=== PATIENT | female | born 1940 | race Asian ===

== ENCOUNTER 2017-07-24 23:56 | Inpatient (IN) | payer MEDICARE ==
[~2017-07-24] VITALS: Ht 165.1 cm; Wt 98.7 kg
[2017-07-25] MEDS ORDERED: hydrALAzine 20 MG/ML, 1ML IV ONE (00:30)
[2017-07-25] MEDS ORDERED: hydrALAzine 20 MG/ML, 1ML ONE (00:43)
[2017-07-25 00:45] LABS: BASOPHILS # (AUTO) 0.04 x10^3/uL (0-0.1); BASOPHILS % (AUTO) 1 % (0-1); EOSINOPHILS # (AUTO) 0.14 x10^3/uL (0-0.4); EOSINOPHILS % (AUTO) 3 % (1-7); LYMPHOCYTES % (AUTO) 29 % (22-44); MD NO; MEAN CORPUSCULAR HEMOGLOBIN 33.2 pg (27.0-34.8); MEAN CORPUSCULAR HGB CONC 34.1 g/dL (32.4-35.8); MEAN CORPUSCULAR VOLUME 97.4 fL (80-100); MEAN PLATELET VOLUME 7.7 fL (7.4-10.4); MONOCYTES # (AUTO) 0.49 x10^3/uL (0.2-0.8); MONOCYTES % (AUTO) 8 % (2-9); NEUTROPHILS # (AUTO) 3.49 x10^3/uL (1.8-6.8); NEUTROPHILS % (AUTO) 60 % (42-75); PLATELET COUNT 232 x10^3/uL (130-400); RED BLOOD COUNT 4.36 x10^6/uL (3.82-5.3); RED CELL DISTRIBUTION WIDTH 13.3 % (9.6-15.2)
[2017-07-25 00:57] LABS: ALBUMIN 3.6 g/dL (3.4-5.0); ANION GAP 11 mmol/L (5-15); CALCIUM 8.4 mg/dL (8.5-10.1); CHLORIDE 107 mmol/L (98-107)
[2017-07-25 01:03] LABS: ALANINE AMINOTRANSFERASE 27 U/L (12-78); ALKALINE PHOSPHATASE 65 U/L (45-117); BILIRUBIN,TOTAL 0.4 mg/dL (0.2-1.0); CREATININE 0.98 mg/dL (0.55-1.02); TROPONIN I < 0.015 ng/mL (0.000-0.045)
[2017-07-25] MEDS ORDERED: SODIUM CHLORIDE 0.9% 1,000 ML IV SCH (04:10)
[2017-07-25] MEDS ORDERED: ONDANSETRON 2MG/ML, 2ML IVPush PRN ×2 (04:30→08:00)
[2017-07-25] MEDS ORDERED: hydrALAzine 20 MG/ML, 1ML IVPush PRN (04:30)
[2017-07-25] MEDS ORDERED: ACETAMINOPHEN 325 MG TABLET PO PRN (04:30)
[2017-07-25] MEDS ORDERED: GADOBUTROL 10 MMOL/10 ML PFS ONE (04:44)
[2017-07-25 05:35] VITALS: BP 148/81
[2017-07-25] MEDS: DEXAMETHASONE 4 MG TABLET PO SCH (08:00)
[2017-07-25 08:03] VITALS: BP 146/77
[2017-07-25] MEDS ORDERED: DEXAMETHASONE 1 MG TABLET ONE (08:18)
[2017-07-25] MEDS: HYDROCHLOROTHIAZIDE 12.5 MG CAPSULE PO SCH (08:24)
[2017-07-25] MEDS: METOPROLOL TARTRATE 25 MG TABLET PO SCH ×2 (08:25→17:24)
[2017-07-25 15:14] VITALS: BP 117/65
[2017-07-25 19:16] VITALS: BP 161/78
[2017-07-26 02:43] VITALS: BP 111/64
[2017-07-26 05:31] LABS: BASOPHILS # (AUTO) 0.02 x10^3/uL (0-0.1); BASOPHILS % (AUTO) 0 % (0-1); EOSINOPHILS % (AUTO) 0 % (1-7); LYMPHOCYTES # (AUTO) 1.23 x10^3/uL (1-3.4); LYMPHOCYTES % (AUTO) 16 % (22-44); MD NO; MEAN CORPUSCULAR HEMOGLOBIN 33.2 pg (27.0-34.8); MEAN CORPUSCULAR HGB CONC 34.1 g/dL (32.4-35.8); MEAN CORPUSCULAR VOLUME 97.4 fL (80-100); MEAN PLATELET VOLUME 7.9 fL (7.4-10.4); MONOCYTES # (AUTO) 0.65 x10^3/uL (0.2-0.8); MONOCYTES % (AUTO) 8 % (2-9); NEUTROPHILS # (AUTO) 5.82 x10^3/uL (1.8-6.8); NEUTROPHILS % (AUTO) 75 % (42-75); PLATELET COUNT 223 x10^3/uL (130-400); RED BLOOD COUNT 4.31 x10^6/uL (3.82-5.3); RED CELL DISTRIBUTION WIDTH 13.4 % (9.6-15.2)
[2017-07-26] MEDS: METOPROLOL TARTRATE 25 MG TABLET PO SCH (05:33)
[2017-07-26 05:36] LABS: ANION GAP 12 mmol/L (5-15); CALCIUM 8.6 mg/dL (8.5-10.1); CHLORIDE 106 mmol/L (98-107)
[2017-07-26 05:39] LABS: CREATININE 1.06 mg/dL (0.55-1.02)
[2017-07-26] MEDS ORDERED: DEXA4TAB PO (06:47)
[2017-07-26] MEDS ORDERED: FAMO20TA37 PO (06:47)
[2017-07-26] MEDS ORDERED: HYDR12.53 PO (06:47)
[2017-07-26] MEDS ORDERED: METO25TA35 PO (06:47)
[2017-07-26 07:55] VITALS: BP 148/79
[2017-07-26] MEDS: HYDROCHLOROTHIAZIDE 12.5 MG CAPSULE PO SCH (07:57)
[2017-07-26] MEDS: DEXAMETHASONE 4 MG TABLET PO SCH (07:57)
[2017-07-26] MEDS ORDERED: FLU VACC QS2017-18 (36MOS+) UP/PF 0.5 ML IM-VACC ONE (10:30)
[2017-07-26] MEDS ORDERED: PNEUMOCOCCAL 23 VACCINE IM-VACC ONE (10:30)
== END 2017-07-26 11:11 | disposition home or self-care (01) | DRG 149 ==
LOC: ED 07-25 00:45 → EDIP 07-25 03:16 → 4WST 07-25 05:27 → DCLOUNGE 07-26 10:40
PROVIDERS: ADMIT Hospitalist; ATTEND Hospitalist
DX: R42 Dizziness and giddiness (principal); D18.02 Hemangioma of intracranial structures; I16.0 Hypertensive urgency; E66.9 Obesity, unspecified; I10 Essential (primary) hypertension; Z68.36 Body mass index [BMI] 36.0-36.9, adult; R27.0 Ataxia, unspecified
CPT/HCPCS: 36415; 70450; 70544; 70553; 71045; 80048; 80053; 83735; 83880; 84100; 84484; 85025; 90686; 90732; 93005; 96374; A9585; J0360

== ENCOUNTER → 2017-09-01 | Outpatient (CLI) | payer MEDICARE ==
[~2017-09-01] MED LIST: AMLO5TAB2 PO; DEXA4TAB PO; FAMO20TA37 PO; HYDR-3343 PO; HYDR12.53 PO; METO25TA35 PO; SIMV20TA PO
== END | disposition home or self-care (01) ==
LOC: CFH 12:58
PROVIDERS: ATTEND Family Medicine
DX: Z12.31 Encounter for screening mammogram for malignant neoplasm of breast (principal)
CPT/HCPCS: 77067

== ENCOUNTER 2018-07-27 21:59 | Emergency (ER) | payer MEDICARE ==
[~2018-07-27] VITALS: Ht 165.1 cm; Wt 111.9 kg
[~2018-07-27 21:59] MED LIST changes: +AMLO-150 PO; -AMLO5TAB2 PO; +HYDR12.517 PO; -HYDR12.53 PO
--- NOTE | 2018-07-27 22:26 | NUR ---
Dr. Love at bedside to evaluate pt. Pt reports that for the past week she hasn't been feeling well and today started c/o pain to her hands and feet. Pt is not taking any HTN medications.
[2018-07-27 22:57] LABS: BASOPHILS # (AUTO) 0.01 x10^3/uL (0-0.1); BASOPHILS % (AUTO) 0 % (0-1); EOSINOPHILS # (AUTO) 0.42 x10^3/uL (0-0.4); EOSINOPHILS % (AUTO) 7 % (1-7); LYMPHOCYTES # (AUTO) 1.05 x10^3/uL (1-3.4); LYMPHOCYTES % (AUTO) 18 % (22-44); MD NO; MEAN CORPUSCULAR HEMOGLOBIN 33.6 pg (27.0-34.8); MEAN CORPUSCULAR HGB CONC 34.2 g/dL (32.4-35.8); MEAN CORPUSCULAR VOLUME 98.1 fL (80-100); MEAN PLATELET VOLUME 7.8 fL (7.4-10.4); MONOCYTES # (AUTO) 0.57 x10^3/uL (0.2-0.8); MONOCYTES % (AUTO) 10 % (2-9); NEUTROPHILS # (AUTO) 3.89 x10^3/uL (1.8-6.8); NEUTROPHILS % (AUTO) 65 % (42-75); PLATELET COUNT 214 x10^3/uL (130-400); RED BLOOD COUNT 4.38 x10^6/uL (3.82-5.3); RED CELL DISTRIBUTION WIDTH 13.2 % (9.6-15.2)
[2018-07-27 23:04] LABS: ALBUMIN 3.5 g/dL (3.4-5.0); ANION GAP 8 mmol/L (5-15); CALCIUM 8.9 mg/dL (8.5-10.1); CHLORIDE 109 mmol/L (98-107); CREATININE 1.14 mg/dL (0.55-1.02)
[2018-07-27 23:08] LABS: TROPONIN I < 0.015 ng/mL (0.000-0.045)
--- NOTE | 2018-07-27 23:20 | NUR ---
Break RN: Pt resting with no s/s of acute distress. Warm blanket given per request. VS improving. Pt updated to POC. Pt to CT via [facility].
[2018-07-28 00:46] VITALS: BP 140/71
--- NOTE | 2018-07-28 00:47 | NUR ---
Patient/Caregiver given discharge instructions and they have confirmed that they understand the instructions. Patient ambulatory with steady gait.
== END 2018-07-28 00:48 | disposition home or self-care (01) ==
LOC: ED 22:49
DX: I10 Essential (primary) hypertension (principal); R51 Headache
CPT/HCPCS: 36415; 70450; 80048; 82040; 84484; 85025; 93005; 99284

== ENCOUNTER 2018-10-31 01:27 | Inpatient (IN) | payer MEDICARE ==
[~2018-10-31] VITALS: Ht 165.1 cm; Wt 127.0 kg
--- NOTE | 2018-10-31 01:45 | NUR ---
ABD PAIN X 3 HOURS DENIES VOMITING DIARRHEA, NO BM SINCE MONDAY. MONITORS APPLIED, SIDERAISL UP X2, FAMILY AT BEDSIDE, CALL LIGHT WITHIN REACH
[2018-10-31] MEDS ORDERED: LOSA50TA14 PO (01:47)
[2018-10-31] MEDS ORDERED: SODIUM CHLORIDE FLUSH 10ML SYR IVF ONE ×2 (02:00→04:00)
--- NOTE | 2018-10-31 02:26 | NUR ---
break rn: 2 iv attempts failed. ekg and labs drawn. another rn to attempt iv placement. family at bedside.
[2018-10-31 02:31] LABS: BASOPHILS % (AUTO) 0 % (0-1); EOSINOPHILS # (AUTO) 0.31 x10^3/uL (0-0.4); EOSINOPHILS % (AUTO) 3 % (1-7); LYMPHOCYTES # (AUTO) 1.33 x10^3/uL (1-3.4); LYMPHOCYTES % (AUTO) 12 % (22-44); MD NO; MEAN CORPUSCULAR HEMOGLOBIN 33.4 pg (27.0-34.8); MEAN CORPUSCULAR HGB CONC 34.1 g/dL (32.4-35.8); MEAN CORPUSCULAR VOLUME 98.1 fL (80-100); MEAN PLATELET VOLUME 7.5 fL (7.4-10.4); MONOCYTES # (AUTO) 0.19 x10^3/uL (0.2-0.8); MONOCYTES % (AUTO) 2 % (2-9); NEUTROPHILS % (AUTO) 84 % (42-75); PLATELET COUNT 261 x10^3/uL (130-400); RED BLOOD COUNT 4.35 x10^6/uL (3.82-5.3); RED CELL DISTRIBUTION WIDTH 13.6 % (9.6-15.2)
--- NOTE | 2018-10-31 02:37 | NUR ---
CT PENDING CREATINE.
[2018-10-31 02:40] LABS: ALANINE AMINOTRANSFERASE 173 U/L (12-78); ALBUMIN 3.3 g/dL (3.4-5.0); ANION GAP 7 mmol/L (5-15); CALCIUM 8.8 mg/dL (8.5-10.1); CHLORIDE 110 mmol/L (98-107); CREATININE 1.22 mg/dL (0.55-1.02)
[2018-10-31 02:45] LABS: ALKALINE PHOSPHATASE 76 U/L (45-117); BILIRUBIN,TOTAL 0.6 mg/dL (0.2-1.0); TOTAL PROTEIN 7.5 g/dL (6.4-8.2); TROPONIN I < 0.015 ng/mL (0.000-0.045)
--- NOTE | 2018-10-31 03:14 | NUR ---
waiting for iv for ct.
--- NOTE | 2018-10-31 03:19 | NUR ---
URINE SAMPLE TAKEN TO LAB. PT TO CT
[2018-10-31] MEDS ORDERED: OMNIPAQUE 350 MG/ML, 100ML BOTTLE ONE (03:24)
[2018-10-31 03:42] LABS: MICROSCOPIC INDICATED
[2018-10-31 03:43] LABS: CULTURE INDICATED? YES
[2018-10-31] MEDS ORDERED: SODIUM CHLORIDE 0.9% 1,000ML IVBOLUS ONE (04:00)
[2018-10-31] MEDS ORDERED: HYDROmorphone 2 MG/ML, 1ML IVPush PRN (04:00)
[2018-10-31] MEDS ORDERED: ONDANSETRON 2MG/ML, 2ML IVPush ONE (04:00)
[2018-10-31] MEDS ORDERED: ONDANSETRON 2MG/ML, 2ML ONE (04:12)
[2018-10-31] MEDS ORDERED: HYDROmorphone 1 MG/ML, 1ML VIAL ONE (04:13)
--- NOTE | 2018-10-31 04:18 | NUR ---
PT MEDICATED PER MAR
[2018-10-31] MEDS ORDERED: SODIUM CHLORIDE 0.9% 1,000 ML IV SCH (04:36)
[2018-10-31] MEDS ORDERED: hydrALAzine 20 MG/ML, 1ML IVPush PRN (05:00)
[2018-10-31 05:19] LABS: TRIGLYCERIDES 66 mg/dL (50-200)
--- NOTE | 2018-10-31 05:26 | NUR ---
PT RESTING CALMLY, MONITORS IN PLACE, CALL LIGHT WITHIN REACH. AWAITING ROOM FOR ADMIT
--- NOTE | 2018-10-31 05:31 | NUR ---
CALLED FLOOR TO GIVE REPORT, RN IN ISOLATION ROOM AND WILL CALL THIS RN BACK
[2018-10-31 06:00] VITALS: BP 120/65
[2018-10-31 08:00] VITALS: BP 109/64
[2018-10-31] MEDS: FAMOTIDINE 20 MG/2 ML IVPush SCH ×2 (09:00→21:15)
[2018-10-31] MEDS: LOSARTAN 50MG TABLET PO SCH (09:00)
[2018-10-31] MEDS ORDERED: HEPARIN 5,000 UNITS/ML, 1ML SQ SCH (13:00)
[2018-10-31 13:05] VITALS: BP 113/57
[2018-10-31] MEDS: morphine SULFATE 10 MG/ML, 1ML IVPush PRN ×2 (15:28→21:15)
[2018-10-31 19:33] VITALS: BP 113/64
[2018-11-01 01:42] VITALS: BP 113/67
[2018-11-01] MEDS: SODIUM CHLORIDE 0.9% 1,000 ML IV SCH ×3 (04:02→14:51)
[2018-11-01 04:52] LABS: BASOPHILS # (AUTO) 0.03 x10^3/uL (0-0.1); BASOPHILS % (AUTO) 0 % (0-1); EOSINOPHILS # (AUTO) 0.16 x10^3/uL (0-0.4); EOSINOPHILS % (AUTO) 2 % (1-7); LYMPHOCYTES # (AUTO) 1.57 x10^3/uL (1-3.4); LYMPHOCYTES % (AUTO) 17 % (22-44); MD NO; MEAN CORPUSCULAR HEMOGLOBIN 33.3 pg (27.0-34.8); MEAN CORPUSCULAR HGB CONC 33.8 g/dL (32.4-35.8); MEAN CORPUSCULAR VOLUME 98.4 fL (80-100); MEAN PLATELET VOLUME 7.5 fL (7.4-10.4); MONOCYTES % (AUTO) 8 % (2-9); NEUTROPHILS # (AUTO) 6.83 x10^3/uL (1.8-6.8); NEUTROPHILS % (AUTO) 74 % (42-75); PLATELET COUNT 212 x10^3/uL (130-400); RED BLOOD COUNT 3.96 x10^6/uL (3.82-5.3); RED CELL DISTRIBUTION WIDTH 13.2 % (9.6-15.2)
[2018-11-01 05:00] LABS: ALBUMIN 2.9 g/dL (3.4-5.0); CALCIUM 7.8 mg/dL (8.5-10.1)
[2018-11-01 05:04] LABS: ALANINE AMINOTRANSFERASE 187 U/L (12-78); ALKALINE PHOSPHATASE 75 U/L (45-117); BILIRUBIN,TOTAL 1.5 mg/dL (0.2-1.0); CHOL/HDL RATIO 2.1; CHOLESTEROL, TOTAL 117 mg/dL (140-239); HDL CHOL % 48 % (28-40); HDL CHOLESTEROL (DIRECT) 56 mg/dL (40-60); LDL CHOLESTEROL,CALCULATED 54 mg/dL (54-169); TOTAL PROTEIN 6.4 g/dL (6.4-8.2); TRIGLYCERIDES 37 mg/dL (50-200); VLDL CHOLESTEROL 7 mg/dL (0-25)
[2018-11-01 05:10] LABS: ANION GAP 8 mmol/L (5-15); CHLORIDE 113 mmol/L (98-107)
[2018-11-01] MEDS ORDERED: ROCURONIUM 10MG/ML,5ML ONE ×2 (07:17→11:04)
[2018-11-01] MEDS ORDERED: FENTANYL PF 250 MCG/5ML ONE (07:17)
[2018-11-01] MEDS ORDERED: MIDAZOLAM 1 MG/ML, 2ML ONE (07:17)
[2018-11-01] MEDS ORDERED: OMNIPAQUE 350 MG/ML, 50 ML BOTTLE ONE (07:30)
[2018-11-01] MEDS ORDERED: OXYcodone 5 MG/5 ML ORAL.SOL UDC PO PRN (08:00)
[2018-11-01] MEDS ORDERED: HALOPERIDOL 5 MG/ML IV PRN (08:00)
[2018-11-01] MEDS ORDERED: MEPERIDINE/PF 25MG/0.5ML IVPush PRN (08:00)
[2018-11-01] MEDS ORDERED: hydrALAzine 20 MG/ML, 1ML IV PRN (08:00)
[2018-11-01] MEDS ORDERED: FENTANYL PF 100 MCG/2ML IV PRN (08:00)
[2018-11-01] MEDS ORDERED: HYDROmorphone 2 MG/ML, 1ML IVPush PRN (08:00)
[2018-11-01] MEDS ORDERED: PROMETHAZINE 25 MG/ML, 1ML IV PRN (08:00)
[2018-11-01] MEDS ORDERED: INDOMETHACIN 50 MG SUPP.RECT ONE (08:24)
[2018-11-01] MEDS ORDERED: INDOMETHACIN 50 MG SUPP.RECT PR ONE (08:30)
[2018-11-01] MEDS: FAMOTIDINE 20 MG/2 ML IVPush SCH (09:00)
[2018-11-01] MEDS: LOSARTAN 50MG TABLET PO SCH (09:00)
[2018-11-01 09:15] VITALS: BP 168/83
[2018-11-01] MEDS ORDERED: PROPOFOL 10 MG/ML, 20ML ONE (11:04)
[2018-11-01] MEDS ORDERED: DEXAMETHASONE 4 MG/ML, 1ML ONE (11:04)
[2018-11-01] MEDS ORDERED: SUGAMMADEX 200 MG/2 ML IVPush ONE (11:04)
[2018-11-01] MEDS ORDERED: CEFAZOLIN 1,000 MG ONE (11:04)
[2018-11-01] MEDS ORDERED: ONDANSETRON 2MG/ML, 2ML ONE (11:04)
[2018-11-01 14:35] VITALS: BP 120/65
[2018-11-01 20:00] VITALS: BP 133/75
[2018-11-01] MEDS: morphine SULFATE 10 MG/ML, 1ML IVPush PRN (20:44)
[2018-11-01] MEDS: FAMOTIDINE 20 MG TABLET PO SCH (20:45)
[2018-11-02 03:07] VITALS: BP 108/63
[2018-11-02 04:40] LABS: MEAN CORPUSCULAR HEMOGLOBIN 33.3 pg (27.0-34.8); MEAN CORPUSCULAR HGB CONC 33.8 g/dL (32.4-35.8); MEAN CORPUSCULAR VOLUME 98.6 fL (80-100); MEAN PLATELET VOLUME 7.8 fL (7.4-10.4); PLATELET COUNT 198 x10^3/uL (130-400); RED BLOOD COUNT 3.82 x10^6/uL (3.82-5.3); RED CELL DISTRIBUTION WIDTH 13.3 % (9.6-15.2)
[2018-11-02 04:53] LABS: ALBUMIN 2.5 g/dL (3.4-5.0); ANION GAP 9 mmol/L (5-15); CALCIUM 8.1 mg/dL (8.5-10.1); CHLORIDE 112 mmol/L (98-107)
[2018-11-02 04:58] LABS: ALANINE AMINOTRANSFERASE 119 U/L (12-78); ALKALINE PHOSPHATASE 78 U/L (45-117); BILIRUBIN,TOTAL 1.1 mg/dL (0.2-1.0); CREATININE 1.02 mg/dL (0.55-1.02); TOTAL PROTEIN 6.3 g/dL (6.4-8.2)
[2018-11-02 05:03] LABS: BASOPHILS # (AUTO) 0.01 x10^3/uL (0-0.1); BASOPHILS % (AUTO) 0 % (0-1); EOSINOPHILS % (AUTO) 0 % (1-7); LYMPHOCYTES # (AUTO) 0.65 x10^3/uL (1-3.4); LYMPHOCYTES % (AUTO) 5 % (22-44); MD SCAN; MONOCYTES # (AUTO) 0.47 x10^3/uL (0.2-0.8); MONOCYTES % (AUTO) 4 % (2-9); NEUTROPHILS # (AUTO) 11.09 x10^3/uL (1.8-6.8); NEUTROPHILS % (AUTO) 91 % (42-75)
[2018-11-02 09:26] VITALS: BP 123/71
[2018-11-02] MEDS: FAMOTIDINE 20 MG TABLET PO SCH ×2 (09:27→20:19)
[2018-11-02] MEDS: LOSARTAN 50MG TABLET PO SCH (09:28)
[2018-11-02 14:10] VITALS: BP 111/63
[2018-11-02] MEDS ORDERED: SODIUM CHLORIDE 0.9% 1,000 ML IV SCH (14:30)
[2018-11-02] MEDS: LACTATED RINGERS 1,000 ML IV SCH ×2 (15:32→23:26)
[2018-11-02] MEDS: morphine SULFATE 10 MG/ML, 1ML IVPush PRN (18:12)
[2018-11-02 19:08] VITALS: BP 147/66
[2018-11-02] MEDS ORDERED: ENOXAPARIN 40 MG/0.4 ML SQ SCH (19:30)
[2018-11-03 01:16] VITALS: BP 126/69
[2018-11-03] MEDS: LACTATED RINGERS 1,000 ML IV SCH ×4 (04:05→19:47)
[2018-11-03 04:53] LABS: BASOPHILS # (AUTO) 0.06 x10^3/uL (0-0.1); BASOPHILS % (AUTO) 1 % (0-1); EOSINOPHILS # (AUTO) 0.04 x10^3/uL (0-0.4); EOSINOPHILS % (AUTO) 0 % (1-7); LYMPHOCYTES # (AUTO) 1.15 x10^3/uL (1-3.4); LYMPHOCYTES % (AUTO) 11 % (22-44); MD NO; MEAN CORPUSCULAR HEMOGLOBIN 33.1 pg (27.0-34.8); MEAN CORPUSCULAR HGB CONC 33.5 g/dL (32.4-35.8); MEAN PLATELET VOLUME 7.9 fL (7.4-10.4); MONOCYTES % (AUTO) 10 % (2-9); NEUTROPHILS # (AUTO) 8.07 x10^3/uL (1.8-6.8); NEUTROPHILS % (AUTO) 78 % (42-75); PLATELET COUNT 193 x10^3/uL (130-400); RED BLOOD COUNT 3.67 x10^6/uL (3.82-5.3); RED CELL DISTRIBUTION WIDTH 13.5 % (9.6-15.2)
[2018-11-03 04:57] LABS: ALBUMIN 2.8 g/dL (3.4-5.0); CHLORIDE 112 mmol/L (98-107)
[2018-11-03 05:03] LABS: ALANINE AMINOTRANSFERASE 84 U/L (12-78); ALKALINE PHOSPHATASE 75 U/L (45-117); ANION GAP 5 mmol/L (5-15); BILIRUBIN,TOTAL 0.9 mg/dL (0.2-1.0); CALCIUM 8.3 mg/dL (8.5-10.1); CREATININE 1.02 mg/dL (0.55-1.02); TOTAL PROTEIN 6.5 g/dL (6.4-8.2)
[2018-11-03] MEDS: morphine SULFATE 10 MG/ML, 1ML IVPush PRN ×2 (06:30→15:08)
[2018-11-03 06:51] VITALS: BP 149/77
[2018-11-03] MEDS: LOSARTAN 50MG TABLET PO SCH (09:58)
[2018-11-03] MEDS: FAMOTIDINE 20 MG TABLET PO SCH (09:58)
[2018-11-03 12:52] VITALS: BP 125/65
[2018-11-03] MEDS: PANTOPROZOLE 40MG TABLET PO SCH ×2 (13:55→17:57)
[2018-11-03] MEDS: ENOXAPARIN 30 MG/0.3 ML SQ SCH (13:56)
[2018-11-03 19:23] VITALS: BP 119/67
[2018-11-03] MEDS ORDERED: ENOXAPARIN 30 MG/0.3 ML SQ SCH (20:00)
[2018-11-04] MEDS: LACTATED RINGERS 1,000 ML IV SCH ×2 (01:05→05:12)
[2018-11-04 01:50] VITALS: BP 136/75
[2018-11-04 05:11] LABS: BASOPHILS # (AUTO) 0.02 x10^3/uL (0-0.1); BASOPHILS % (AUTO) 0 % (0-1); EOSINOPHILS # (AUTO) 0.28 x10^3/uL (0-0.4); EOSINOPHILS % (AUTO) 4 % (1-7); LYMPHOCYTES % (AUTO) 18 % (22-44); MD NO; MEAN CORPUSCULAR HEMOGLOBIN 33.5 pg (27.0-34.8); MEAN CORPUSCULAR VOLUME 98.3 fL (80-100); MEAN PLATELET VOLUME 7.7 fL (7.4-10.4); MONOCYTES # (AUTO) 0.96 x10^3/uL (0.2-0.8); MONOCYTES % (AUTO) 13 % (2-9); NEUTROPHILS # (AUTO) 4.85 x10^3/uL (1.8-6.8); NEUTROPHILS % (AUTO) 65 % (42-75); PLATELET COUNT 206 x10^3/uL (130-400); RED BLOOD COUNT 3.62 x10^6/uL (3.82-5.3); RED CELL DISTRIBUTION WIDTH 13.4 % (9.6-15.2)
[2018-11-04] MEDS: ENOXAPARIN 30 MG/0.3 ML SQ SCH (05:12)
[2018-11-04] MEDS: morphine SULFATE 10 MG/ML, 1ML IVPush PRN (05:13)
[2018-11-04 05:24] LABS: ALBUMIN 2.5 g/dL (3.4-5.0); ANION GAP 6 mmol/L (5-15); CALCIUM 8.1 mg/dL (8.5-10.1); CHLORIDE 111 mmol/L (98-107)
[2018-11-04 05:29] LABS: ALANINE AMINOTRANSFERASE 68 U/L (12-78); ALKALINE PHOSPHATASE 77 U/L (45-117); BILIRUBIN,TOTAL 1.3 mg/dL (0.2-1.0); CREATININE 0.94 mg/dL (0.55-1.02); TOTAL PROTEIN 6.1 g/dL (6.4-8.2)
[2018-11-04 06:50] VITALS: BP 134/70
[2018-11-04] MEDS: PANTOPROZOLE 40MG TABLET PO SCH (10:02)
[2018-11-04] MEDS: LOSARTAN 50MG TABLET PO SCH (10:02)
== END 2018-11-04 11:01 | disposition home or self-care (01) | DRG 438 ==
LOC: ED 03:57 → EDIP 03:58 → 3NW 06:00
PROVIDERS: ADMIT Family Medicine; ATTEND Family Medicine
PROC: 0F798ZZ Dilation of Common Bile Duct, Via Natural or Artificial Opening Endoscopic (ICD-10-PCS; 2018-11-01)
PROC: BF131ZZ Fluoroscopy of Gallbladder and Bile Ducts using Low Osmolar Contrast (ICD-10-PCS; 2018-11-01)
PROC: 0FC98ZZ Extirpation of Matter from Common Bile Duct, Via Natural or Artificial Opening Endoscopic (ICD-10-PCS; principal; 2018-11-01 07:30)
DX: K85.10 Biliary acute pancreatitis without necrosis or infection (principal); J96.01 Acute respiratory failure with hypoxia; Z68.41 Body mass index [BMI] 40.0-44.9, adult; Z68.42 Body mass index [BMI] 45.0-49.9, adult; K80.70 Calculus of gallbladder and bile duct without cholecystitis without obstruction; E86.0 Dehydration; E66.9 Obesity, unspecified; I10 Essential (primary) hypertension; R74.0 Nonspecific elevation of levels of transaminase and lactic acid dehydrogenase [LDH]; Z86.718 Personal history of other venous thrombosis and embolism
CPT/HCPCS: 36415; 74177; 74181; 74328; 76700; 80053; 80061; 81001; 83690; 84478; 84484; 85025; 87086; 93005; 96361; 96374; 96375; G0378; J0690; J1100; J1170; J1650; J2250; J2405; J2704; J3010; Q9967; C1769; J2270; J3490; J7030; J7120

== ENCOUNTER 2018-11-12 07:38 | Day surgery (SDC) | payer MEDICARE ==
[~2018-11-12] VITALS: Ht 163.8 cm; Wt 112.8 kg
[~2018-11-12 07:38] MED LIST changes: +BUPIVACAINE/PF 0.25% ONE; +LOSA50TA14 PO
[2018-11-12 08:23] VITALS: BP 169/84
[2018-11-12 08:29] VITALS: BP 169/84
[2018-11-12] MEDS ORDERED: LACTATED RINGERS 1,000 ML IV SCH (08:32)
[2018-11-12] MEDS ORDERED: FENTANYL PF 250 MCG/5ML ONE (08:58)
[2018-11-12] MEDS ORDERED: ONDANSETRON 2MG/ML, 2ML ONE (08:59)
[2018-11-12] MEDS ORDERED: SUCCINYLCHOLINE 20 MG/ML, 10ML ONE (08:59)
[2018-11-12] MEDS ORDERED: CEFAZOLIN 1,000 MG ONE (08:59)
[2018-11-12] MEDS ORDERED: GLYCOPYRROLATE 0.2MG/1ML, 5ML ONE (08:59)
[2018-11-12] MEDS ORDERED: ROCURONIUM 10MG/ML,5ML ONE (08:59)
[2018-11-12] MEDS ORDERED: PROPOFOL 10 MG/ML, 20ML ONE (08:59)
[2018-11-12] MEDS ORDERED: DEXAMETHASONE 4 MG/ML, 1ML ONE (08:59)
[2018-11-12] MEDS ORDERED: NEOSTIGMINE 1 MG/ML, 10ML ONE (08:59)
[2018-11-12] MEDS ORDERED: LIDOCAINE-MPF 2% ,5ML ONE (09:10)
[2018-11-12] MEDS ORDERED: ACETAMINOPHEN 325 MG TABLET PO PRN (10:00)
[2018-11-12] MEDS ORDERED: ONDANSETRON ODT 8 MG PO PRN (10:00)
[2018-11-12] MEDS ORDERED: ONDANSETRON 2MG/ML, 2ML IV PRN (10:00)
[2018-11-12] MEDS ORDERED: HYDROmorphone 2 MG/ML, 1ML IVPush PRN (10:00)
[2018-11-12] MEDS ORDERED: LABETALOL 5 MG/ML SYRINGE IV PRN (10:00)
[2018-11-12] MEDS ORDERED: hydrALAzine 20 MG/ML, 1ML IV PRN (10:00)
[2018-11-12] MEDS ORDERED: LABETALOL 5MG/ML, 20ML IV PRN (10:00)
[2018-11-12] MEDS ORDERED: PROMETHAZINE 25 MG/ML, 1ML IV PRN (10:00)
[2018-11-12] MEDS ORDERED: LIDOCAINE 4%, 4 ML SYR/CANN TP ONE (10:22)
[2018-11-12] MEDS ORDERED: ACETAMINOPHEN 650 MG/20.3 ML UDC ONE (10:36)
[2018-11-12] MEDS ORDERED: ACETAMINOPHEN 325 MG TABLET ONE (10:36)
[2018-11-12] MEDS ORDERED: FENTANYL PF 100 MCG/2ML ONE ×2 (10:36→11:19)
[2018-11-12] MEDS ORDERED: OXYcodone 5 MG/5 ML ORAL.SOL UDC ONE ×2 (10:37→11:36)
[2018-11-12] MEDS: FENTANYL PF 100 MCG/2ML IV PRN ×4 (10:38→11:27)
[2018-11-12] MEDS: OXYcodone 5 MG/5 ML ORAL.SOL UDC PO PRN ×2 (11:01→11:37)
[2018-11-12] MEDS ORDERED: hydrALAzine 20 MG/ML, 1ML ONE (11:02)
[2018-11-12] MEDS ORDERED: HYDROcodone/APAP 5/325 TABLET ONE ×2 (17:20→17:21)
[2018-11-12] MEDS ORDERED: HYDROcodone/APAP 5/325 TABLET PO ONE (17:30)
== END 2018-11-12 17:30 | disposition home or self-care (01) ==
LOC: OUT 07:38
PROVIDERS: ATTEND Surgery
DX: K81.1 Chronic cholecystitis (principal); K81.0 Acute cholecystitis; I10 Essential (primary) hypertension; Z87.891 Personal history of nicotine dependence; Z91.018 Allergy to other foods
CPT/HCPCS: 47562; 88304; C1760; J0330; J0360; J0690; J1100; J2405; J2704; J2710; J3010; J3490; J7120

== ENCOUNTER 2018-11-14 00:40 | Emergency (ER) | payer MEDICARE ==
[~2018-11-14] VITALS: Ht 162.6 cm; Wt 115.0 kg
[~2018-11-14 00:40] MED LIST changes: -BUPIVACAINE/PF 0.25% ONE
[2018-11-14 01:29] LABS: BASOPHILS # (AUTO) 0.02 x10^3/uL (0-0.1); BASOPHILS % (AUTO) 0 % (0-1); EOSINOPHILS # (AUTO) 0.03 x10^3/uL (0-0.4); EOSINOPHILS % (AUTO) 0 % (1-7); LYMPHOCYTES # (AUTO) 1.03 x10^3/uL (1-3.4); LYMPHOCYTES % (AUTO) 8 % (22-44); MD NO; MEAN CORPUSCULAR HEMOGLOBIN 33.5 pg (27.0-34.8); MEAN CORPUSCULAR HGB CONC 33.2 g/dL (32.4-35.8); MEAN PLATELET VOLUME 7.5 fL (7.4-10.4); MONOCYTES # (AUTO) 0.73 x10^3/uL (0.2-0.8); MONOCYTES % (AUTO) 5 % (2-9); NEUTROPHILS % (AUTO) 87 % (42-75); PLATELET COUNT 252 x10^3/uL (130-400); RED BLOOD COUNT 3.85 x10^6/uL (3.82-5.3); RED CELL DISTRIBUTION WIDTH 13.8 % (9.6-15.2)
[2018-11-14 01:36] LABS: ANION GAP 9 mmol/L (5-15); CALCIUM 8.4 mg/dL (8.5-10.1); CHLORIDE 105 mmol/L (98-107); CREATININE 1.17 mg/dL (0.55-1.02)
[2018-11-14 01:41] LABS: ALANINE AMINOTRANSFERASE 63 U/L (12-78); ALKALINE PHOSPHATASE 75 U/L (45-117); TOTAL PROTEIN 7.2 g/dL (6.4-8.2); TROPONIN I < 0.015 ng/mL (0.000-0.045)
--- NOTE | 2018-11-14 02:25 | NUR ---
PT VSS AND UPDATED IN EMR. DR RUIZ AT BS.
--- NOTE | 2018-11-14 02:29 | NUR ---
Pt ambualted to restroom without assistance, update on poc (CTA) denies needs/concerns.
[2018-11-14] MEDS ORDERED: OMNIPAQUE 350 MG/ML, 100ML BOTTLE ONE (02:40)
--- NOTE | 2018-11-14 02:44 | NUR ---
BS REPORT OF PT FROM SUSAN HENRIQUEZ AND ASSUMING CARE OF PT AT THIS TIME.
[2018-11-14 03:32] VITALS: BP 146/89
== END 2018-11-14 04:03 | disposition home or self-care (01) ==
LOC: ED 01:09
DX: R06.00 Dyspnea, unspecified (principal); R05 Cough; R10.9 Unspecified abdominal pain; Z90.49 Acquired absence of other specified parts of digestive tract
CPT/HCPCS: 36415; 71045; 71275; 80053; 83880; 84484; 85025; 93005; 99284; Q9967